=== PATIENT | male | born 1975 | race Caucasian/White ===

== ENCOUNTER 2016-09-16 10:37 | Emergency (ER) | payer MEDICAID, OTHER ==
[2016-09-16 10:45] VITALS: BP 144/90
[2016-09-16] MEDS ORDERED: NS 0.9% 1000 ML* 1,000 ML IV ONE (10:57)
[2016-09-16] MEDS ORDERED: Morphine INJ* 4 MG/ML 1 ML CARPUJECT IV ONE (10:58)
[2016-09-16] MEDS ORDERED: Ondansetron INJ* 2 MG/ML VIAL IV ONE (10:58)
[2016-09-16 12:14] LABS: Urine Bilirubin Negative (Negative); Urine Glucose Negative (Negative); Urine Nitrite Negative (Negative)
--- NOTE | 2016-09-16 12:33 | RAD ---
Indication: RIGHT testicular pain radiating to the RIGHT flank. Comparison: None. Technique: Scrotal ultrasound. Report: 4.6 x 3.2 x 3.2 cm RIGHT testicle and 4.3 x 3.1 x 2.8 cm LEFT testicle. Normal bilateral testicular echotexture and vascularity on Doppler. No focal testicular lesions evident. 1.2 x 1.4 cm RIGHT epididymis head with normal vascularity is remarkable for small epididymal head cysts or spermatoceles measuring up to 6 mm. 1.3 x 1.3 cm LEFT epididymis head with normal vascularity is remarkable for a tiny epididymal head cyst or spermatocele. Small bilateral hydroceles. Negative for varicocele. IMPRESSION: 1. No evidence for testicular torsion, epididymoorchitis, or intratesticular lesions. 2. Small bilateral epididymal head cysts or spermatoceles. 3. Small bilateral hydroceles.
--- NOTE | 2016-09-16 14:50 | RAD ---
Indication: RIGHT flank pain. Comparison: None. Technique: Ultrasound kidneys and urinary bladder. Report: 10.2 x 6.0 x 6.2 cm RIGHT kidney and 10.9 x 4.8 x 5.3 cm LEFT kidney. Normal bilateral renal cortical echogenicity. Suggestion of potential approximate 2 mm bilateral renal stones however this is not definitive the differential including normal foci of medullary fat. Negative for hydronephrosis. No focal renal lesions evident. Negative for perinephric fluid. RIGHT stronger than LEFT ureteral jets documented at the urinary bladder. Prevoid urinary bladder volume estimated at 430 mL. Post void residual volume estimated at 22 mL. 2.9 mm lateral wall thickness within normal limits. No focal bladder lesions evident.. IMPRESSION: 1. Negative for hydronephrosis. 2. Suggestion of potential approximate 2 mm bilateral renal stones however this is not definitive the differential including normal foci of medullary fat. 3. Bilateral ureteral jets documented. 4. Small postvoid residual volume in the urinary bladder.
--- NOTE | 2016-09-16 15:04 | ED ---
Vi Das Matthew, scribed for Sergei Wu MD on 09/16/16 at 1129 . GI/ HPI - HPI Summary HPI Summary: A 41 y/o male presents to the ED with right testicular pain since 05:30 this morning. The pain is described as sharp, radiates into the right flank, and is rated 4/10 in severity currently and 9/10 at its worst. Per the patient, the right testicle appears retracted. Associated symptoms include urinary urgency for the past 2 days. The pain worsens with touch and alleviates without movement. The patient denies trauma, dysuria, and hematuria. He has no Hx of kidney stones or stds. - History of Current Complaint Chief Complaint: EDUrogenitalProblems Time Seen by Provider: 09/16/16 10:50 Stated Complaint: RIGHT TESTICULAR PAIN Hx Obtained From: Patient Onset/Duration: Started Hours Ago, Atraumatic, Still Present Timing: Constant Severity: Moderate Current Severity: Moderate Pain Intensity: 4 Additional Locations for Males: Testicles - RT Pain Characteristics: Sharp Associated Signs and Symptoms: Positive: Other: - urgency - 2 day; No trauma. Negative: Hematuria, Dysuria Alleviating Factor(s): Lying Still - Allergy/Home Medications Allergies/Adverse Reactions: Allergies Allergy/AdvReac Type Severity Reaction Status Date / Time Neomycin Allergy Severe Rash Verified 09/16/16 10:43 PMH/Surg Hx/FS Hx/Imm Hx Endocrine/Hematology History: Reports: Hx Thyroid Disease, Other Endocrine/ Hematological Disorders - pituitary adenoma - Surgical History Surgery Procedure, Year, and Place: left thyroid lobectomy Infectious Disease History: No Infectious Disease History: Denies: Traveled Outside the [place] in Last 30 Days - Family History Known Family History: Negative: Cardiac Disease - Social History Alcohol Use: None Substance Use Type: Reports: None Smoking Status (MU): Never Smoked Tobacco Review of Systems Constitutional: Negative Eyes: Negative ENT: Negative Cardiovascular: Negative Respiratory: Negative Gastrointestinal: Negative Genitourinary: Other - RT testicular pain Positive: urgency. Negative: dysuria, hematuria Musculoskeletal: Negative Skin: Negative Neurological: Negative Psychological: Normal All Other Systems Reviewed And Are Negative: Yes Physical Exam Triage Information Reviewed: Yes Vital Signs On Initial Exam: Initial Vitals Temp Pulse Resp BP Pulse Ox 98.2 F 70 15 144/90 99 09/16/16 10:38 09/16/16 10:38 09/16/16 10:38 09/16/16 10:38 09/16/16 10:38 Vital Signs Reviewed: Yes Appearance: Positive: Well-Appearing, Pain Distress - mild Skin: Positive: Warm, Skin Color Reflects Adequate Perfusion Head/Face: Positive: Normal Head/Face Inspection ENT: Positive: Normal ENT inspection Respiratory/Lung Sounds: Positive: Clear to Auscultation, Breath Sounds Present Cardiovascular: Positive: Normal, RRR. Negative: Murmur Abdomen Description: Positive: Nontender. Negative: Hernia @ Male Genital Exam: Positive: testicular tenderness (R), other - no inguinal hernias Musculoskeletal: Positive: Normal, Strength/ROM Intact Neurological: Positive: Normal, Sensory/Motor Intact, Alert, Oriented to Person Place, Time, CN Intact II-III Psychiatric: Positive: Normal - [place] Coma Scale Best Eye Response: 4 - Spontaneous Best Motor Response: 6 - Obeys Commands Best Verbal Response: 5 - Oriented Diagnostics - Vital Signs Vital Signs Temp Pulse Resp BP Pulse Ox 09/16/16 10:38 98.2 F 70 15 144/90 99 - Laboratory Lab Statement: Any lab studies that have been ordered have been reviewed, and results considered in the medical decision making process. - Ultrasound No standard instances Ultrasound Interpretation: Positive (See Comments) - IMPRESSION: 1. No evidence for testicular torsion, epididymoorchitis, or intratesticular lesions. 2. Small bilateral epididymal head cysts or spermatoceles. 3. Small bilateral hydroceles. Ultrasound Interpretation Completed By: Radiologist - Additional Comments Diagnostic Additional Comments: Kidney US IMPRESSION: 1. Negative for hydronephrosis. 2. Suggestion of potential approximate 2 mm bilateral renal stones however this is not definitive the differential including normal foci of medullary fat. 3. Bilateral ureteral jets documented. 4. Small postvoid residual volume in the urinary bladder. Re-Evaluation - Re-Evaluation First Eval Re-Evaluation Time: 13:06 Change: Unchanged Comment: The patient was notified of his lab and imaging results and he agrees with the treatment plan. GIGU Course/Dx - Course Course Of Treatment: 41 yr old male discussed with Dr Gamble and he will follow up as an outpatient. - Diagnoses Provider Diagnoses: Flank pain, Testicular pain, right - Physician Notifications Discussed Care Of Patient With: Dr. Gamble (Urology) at 13:03 -- Notified of patient's history. Recommended kidney/bladder US and to discharge the patient home as long as there isnt a high grade obstructing stone. Discharge - Discharge Plan Condition: Good Disposition: HOME Patient Education Materials: Flank Pain (ED), Testicle Pain (ED) Referrals: Lew Springer MD [Primary Care Provider] - Christopher Gamble MD [Medical Doctor] - The documentation as recorded by the Vi nugent Matthew accurately reflects the service I personally performed and the decisions made by me, Sergei Wu MD.
== END 2016-09-16 15:12 | disposition home or self-care (01) ==
LOC: ED 10:37
DX: N50.811 Right testicular pain (principal); R10.9 Unspecified abdominal pain; N43.3 Hydrocele, unspecified
CPT/HCPCS: 76770; 76870; 81003; 99282; J2270; J2405